=== PATIENT | female | born 1955 | race Caucasian/White ===

== ENCOUNTER → 2016-06-09 | Outpatient (CLI) | payer BC ==
[~2016-06-09] MED LIST: AZIT250T PO; BENZ100C97 PO; CYAN100099 PO; ESTR0.5T4 PO; IBUP200C62 PO; LORA10TA62 PO; MULT-933 PO; PRED20TA PO; PROM5SYR PO
== END ==
LOC: WC.BC 16:10
DX: Z12.31 Encounter for screening mammogram for malignant neoplasm of breast (principal); Z80.3 Family history of malignant neoplasm of breast
CPT/HCPCS: 77063; G0202